=== PATIENT | male | born 1960 | race Caucasian/White ===

== ENCOUNTER → 2017-02-20 13:34 | Outpatient (CLI) | payer BC ==
[2016-06-17 04:53] VITALS: BMI 35.5
[~2017-02-20 13:34] MED LIST: AMBIEN10 MG PO; BAYER CHEWABLE81 MG PO; BENICAR HCT 40-1 TAB PO; COUMADIN10 MG PO; CYCLOBENZAPRINE10 MG PO; GLUCOPHAGE500 MG PO; HYDROCODONE-APA1 TAB PO; HYZAAR 100-12.51 TAB PO; NORCO 10/325 TA1 TA1 PO; PLAVIX75 MG PO; PROTONIX40 MG PO; ULTRAM50 MG PO
[2017-02-20 14:43] LABS: CKMB 2.2 U/L (0.0-3.6); CREATINE KINASE 136 UL (21-232)
[2017-02-20 14:44] LABS: TROPONIN-I < 0.017 ng/mL (0.000-0.060)
== END | disposition home or self-care (01) ==
LOC: D.LAB 13:34
PROVIDERS: Family Medicine
DX: R07.9 Chest pain, unspecified (principal)

== ENCOUNTER 2018-08-19 08:02 | Emergency (ER) | payer MEDICARE ==
[~2018-08-19] VITALS: Ht 177.8 cm; Wt 111.4 kg
[2018-08-19 08:15] VITALS: Ht 177.8 cm; Wt 111.4 kg
[2018-08-19 08:47] LABS: BASOPHILS 0.3 % (0-2); EOSINOPHILS 0.6 % (0-7); HEMATOCRIT 42.7 % (42.0-54.0); HEMOGLOBIN 15.1 g/dL (13.5-17.5); IMMATURE GRANULOCYTES 0.6 % (0-5); LYMPHOCYTES 26.6 % (15-50); MCH 31.3 pg (26.0-34.0); MCHC 35.4 g/dL (31.0-37.0); MCV 88.4 fL (80.0-100.0); MEAN PLATELET VOLUME 9.7 fL (7.4-10.4); MONOCYTES 13.5 % (2-11); NEUTROPHILS 58.4 % (40-80); RBC 4.83 10x6/uL (4.20-6.10); RDW 12.7 % (11.5-14.5); WBC 6.9 10x3/uL (4.8-10.8)
[2018-08-19 08:48] LABS: PLATELET COUNT 223 10x3/uL (130-400)
[2018-08-19 09:14] LABS: ALBUMIN 3.5 g/dL (3.4-5.0); ALKALINE PHOSPHATASE 57 U/L (46-116); ALT (SGPT) 31 U/L (10-68); BILIRUBIN - TOTAL 0.43 mg/dL (0.2-1.3); CALC OSMOLALITY 277 mosm/kg (275-300); CALCIUM 8.6 mg/dL (8.5-10.1); CARBON DIOXIDE 26.3 mmol/L (21.0-32.0); CHLORIDE - SERUM 100 mmol/L (98-107); POTASSIUM - SERUM 4.3 mmol/L (3.5-5.1); PROTEIN - SERUM 6.8 g/dL (6.4-8.2); SODIUM 135 mmol/L (136-145); UREA NITROGEN 19 mg/dL (7-18); eGFR NON AFRICAN AMERICAN 81 mL/min (90-120)
[2018-08-19 09:18] LABS: GLUCOSE 211 mg/dL (74-106); INR 2.28 (0.85-1.17); PROTIME 24.5 SECONDS (11.6-15.0)
[2018-08-19] MEDS ORDERED: NORCO 10-325 TA1 TAB PO (09:59)
[2018-08-19 10:39] VITALS: BP 109/75
== END 2018-08-19 10:40 | disposition home or self-care (01) ==
LOC: D.ER 08:02
PROVIDERS: Emergency Medicine
DX: S89.92XA Unspecified injury of left lower leg, initial encounter (principal); W20.8XXA Other cause of strike by thrown, projected or falling object, initial encounter; Y93.89 Activity, other specified; Y92.019 Unspecified place in single-family (private) house as the place of occurrence of the external cause; E11.9 Type 2 diabetes mellitus without complications; I10 Essential (primary) hypertension; I25.10 Atherosclerotic heart disease of native coronary artery without angina pectoris; K21.9 Gastro-esophageal reflux disease without esophagitis

== ENCOUNTER 2018-09-09 08:34 | Day surgery (SDC) | payer MEDICARE ==
[~2018-09-09] VITALS: Ht 177.8 cm; Wt 110.0 kg
--- NOTE | ~2018-09-09 | MORECARE ---
CASE MANAGEMENT DISCHARGE SUMMARY PATIENT: GIOVANNA VEGA JR UNIT: [id number] ADM DATE: 09/09/18 AGE: 58 : 58 SEX: M ROOM/BED: AUTHOR: LEROY GAN PHYSICIAN: REFERRING PHYSICIAN: RUEL MARQUEZ MD DATE OF SERVICE: 09/14/18 Discharge Plan Patient Name: GIOVANNA VEGA Facility: [facility]:[place] : 1960 Planned Disposition: Home with Home Health Anticipated Discharge Date: 09/10/18 Discharge Date: 09/10/2018 Expected LOS: 1 Initial Reviewer: [email or web address] Initial Review Date: 09/10/2018 Generated: 09/14/18 2:47 pm Comments DCP- Discharge Planning Updated by [email or web address]: Natalie Bright on 09/10/18 3:[address] Patient Name: GIOVANNA VEGA Admission Status: Elective Accout number: [id number] Admission Date: 09-09-2018 : 1960 Admission Diagnosis: Attending: RUEL MARQUEZ Current LOS: 1 Anticipated DC Date: 09-10-2018 Planned Disposition: Home with Home Health Primary Insurance: [employer] Discharge Planning Comments: CM MET WITH PATIENT AND ABOUT WHAT HH SERVICE THEY WANTED TO USE. HE CHOSE [facility]. REFERAL DOCS FAXED TO [facility]. PT ALSO HAS TO BE SET UP WITH W[facility]. CM IS WORKING WITH [facility] TO SET THAT UP. CM WILL LET RN KNOW WHEN EVERYTHING IS SET UP AND PATIENT IS READY FOR DISCHARGE. Well Driller Helper: Natalie Bright Appended by Natalie Bright on 09/10/2018 16:02 CDT: [facility] SET UP WOUND [facility]AC WITH [facility]. [facility]AC DELIVERED. [facility] TO SEE PATIENT TOMORROW. [facility]'S PHONE NUMBER IS [phone]. [facility] DELIVERED. PATIENT READY FOR DISCHARGE. Coverage Notice Reviewer: [id number] - Natalie Bright Notice Issued Date-Time: 09/10/2018 10:23 Notice Type: Patient Choice Letter Notice Delivered To: Patient Relationship to Patient: Self Test Engineer Nuclear Equipment Name: Delivery Method: HAND - Hand Delivered Kay Days: Prior Verbal Notification: Recipient Understood Notice: Yes Recipient Signature: Yes Med Rec Note Co-signed by Attending: Coverage Notice Comment: PT [facility]OSE [facility] Last DP export: 09/10/18 3:09 Patient Name: GIOVANNA VEGA Page [id number] at 1347 All edits/amendments must be made on the electronic document DICTATION DATE: 09/14/187 AUDIOVISUAL PRODUCTION SPECIALIST: LARY 09/14/187 RPT#: [id number] DC DATE:09/10/18 STATUS: DEP [facility] [address] [place] [address] END OF REPORT
[~2018-09-09 08:34] MED LIST changes: +NORCO 10-325 TA1 TAB PO
[2018-09-09 09:07] LABS: BASOPHILS 0.3 % (0-2); EOSINOPHILS 0.7 % (0-7); HEMATOCRIT 42.5 % (42.0-54.0); HEMOGLOBIN 14.7 g/dL (13.5-17.5); IMMATURE GRANULOCYTES 0.4 % (0-5); LYMPHOCYTES 23.8 % (15-50); MCH 31.1 pg (26.0-34.0); MCHC 34.6 g/dL (31.0-37.0); MONOCYTES 12.3 % (2-11); NEUTROPHILS 62.5 % (40-80); RBC 4.72 10x6/uL (4.20-6.10); RDW 12.7 % (11.5-14.5); WBC 6.8 10x3/uL (4.8-10.8)
[2018-09-09 09:09] LABS: PLATELET COUNT 289 10x3/uL (130-400)
[2018-09-09 09:21] LABS: CALC OSMOLALITY 282 mosm/kg (275-300); CALCIUM 8.7 mg/dL (8.5-10.1); CARBON DIOXIDE 25.1 mmol/L (21.0-32.0); CHLORIDE - SERUM 103 mmol/L (98-107); CREATININE - SERUM 0.7 mg/dL (0.6-1.3); GLUCOSE 197 mg/dL (74-106); POTASSIUM - SERUM 4.7 mmol/L (3.5-5.1); SODIUM 138 mmol/L (136-145); UREA NITROGEN 17 mg/dL (7-18); eGFR NON AFRICAN AMERICAN > 90 mL/min (90-120)
[2018-09-09] MEDS ORDERED: BAYER CHEWABLE81 MG PO (09:33)
[2018-09-09] MEDS ORDERED: PIOGLITAZONE15 MG PO (09:33)
[2018-09-09] MEDS ORDERED: CLEOCIN HCL300 MG PO (09:34)
[2018-09-09] MEDS ORDERED: NORVASC5 MG PO (09:35)
[2018-09-09] MEDS ORDERED: LIPITOR20 MG PO (09:35)
[2018-09-09 09:43] VITALS: BP 131/80; BMI 34.7
[2018-09-09 09:44] LABS: APTT 42.5 SECONDS (22.8-39.4); INR 2.18 (0.85-1.17); PROTIME 23.6 SECONDS (11.6-15.0)
[2018-09-09 17:10] VITALS: BP 119/68; BMI 34.7
[2018-09-09 20:00] VITALS: BP 127/65
[2018-09-10] VITALS: BP 140/64
[2018-09-10 04:00] VITALS: BP 131/75
[2018-09-10 07:59] VITALS: BP 122/68
[2018-09-10 09:37] VITALS: Ht 177.8 cm; Wt 110.0 kg
[2018-09-25] MEDS ORDERED: CELEXA20 MG PO (12:59)
== END 2018-09-10 17:38 | disposition home or self-care (01) ==
LOC: D.M3 08:34 → D.OPS 08:34 → D.PAN 10:00 → D.OPS 10:00 → D.M3 16:19 → D.OPS 09-10 17:38
PROVIDERS: Anesthesiology
DX: S80.12XA Contusion of left lower leg, initial encounter (principal); W20.8XXA Other cause of strike by thrown, projected or falling object, initial encounter; E11.52 Type 2 diabetes mellitus with diabetic peripheral angiopathy with gangrene; I96 Gangrene, not elsewhere classified; I10 Essential (primary) hypertension; E78.5 Hyperlipidemia, unspecified; I25.10 Atherosclerotic heart disease of native coronary artery without angina pectoris; Z95.5 Presence of coronary angioplasty implant and graft; Z79.84 Long term (current) use of oral hypoglycemic drugs; Z79.01 Long term (current) use of anticoagulants; Z79.891 Long term (current) use of opiate analgesic; Z79.82 Long term (current) use of aspirin; Z79.2 Long term (current) use of antibiotics; Z79.899 Other long term (current) drug therapy

== ENCOUNTER 2018-09-30 06:30 | Day surgery (SDC) | payer BC ==
[2018-09-25 13:46] LABS: HEMATOCRIT 41.4 % (42.0-54.0); HEMOGLOBIN 14.1 g/dL (13.5-17.5); MCH 31.2 pg (26.0-34.0); MCHC 34.1 g/dL (31.0-37.0); MCV 91.6 fL (80.0-100.0); MEAN PLATELET VOLUME 9.6 fL (7.4-10.4); RBC 4.52 10x6/uL (4.20-6.10); RDW 12.7 % (11.5-14.5); WBC 5.7 10x3/uL (4.8-10.8)
[2018-09-25 13:54] LABS: CALC OSMOLALITY 286 mosm/kg (275-300); CALCIUM 8.4 mg/dL (8.5-10.1); CARBON DIOXIDE 27.7 mmol/L (21.0-32.0); CHLORIDE - SERUM 105 mmol/L (98-107); GLUCOSE 148 mg/dL (74-106); POTASSIUM - SERUM 4.3 mmol/L (3.5-5.1); SODIUM 141 mmol/L (136-145); UREA NITROGEN 20 mg/dL (7-18); eGFR NON AFRICAN AMERICAN 81 mL/min (90-120)
[2018-09-25 13:56] LABS: APTT 37.9 SECONDS (22.8-39.4); INR 1.79 (0.85-1.17); PROTIME 20.3 SECONDS (11.6-15.0)
[~2018-09-30] VITALS: Ht 177.8 cm; Wt 109.8 kg
[~2018-09-30 06:30] MED LIST changes: +CELEXA20 MG PO; +CLEOCIN HCL300 MG PO; +LIPITOR20 MG PO; +NORVASC5 MG PO; +PIOGLITAZONE15 MG PO
[2018-09-30 07:13] VITALS: BP 136/82; Ht 177.8 cm; Wt 109.8 kg
== END 2018-09-30 14:15 | disposition home or self-care (01) ==
LOC: D.OPS 06:30 → D.PAN 08:45 → D.OPS 08:45
PROVIDERS: Anesthesiology
DX: S81.802A Unspecified open wound, left lower leg, initial encounter (principal); Z01.812 Encounter for preprocedural laboratory examination

== ENCOUNTER 2019-01-04 21:38 | Emergency (ER) | payer BC ==
[~2019-01-04] VITALS: Ht 177.8 cm; Wt 116.4 kg
[2019-01-04 21:44] VITALS: Ht 177.8 cm; Wt 116.4 kg
[2019-01-04] MEDS ORDERED: VALIUM10 MG PO (21:48)
[2019-01-04] MEDS ORDERED: NEURONTIN 400400 MG PO (21:49)
[2019-01-04 22:40] LABS: BASOPHILS 0.3 % (0-2); EOSINOPHILS 0.7 % (0-7); HEMATOCRIT 41.1 % (42.0-54.0); HEMOGLOBIN 14.1 g/dL (13.5-17.5); IMMATURE GRANULOCYTES 0.4 % (0-5); LYMPHOCYTES 31.6 % (15-50); MCH 29.9 pg (26.0-34.0); MCHC 34.3 g/dL (31.0-37.0); MCV 87.3 fL (80.0-100.0); MEAN PLATELET VOLUME 9.8 fL (7.4-10.4); PLATELET COUNT 221 10x3/uL (130-400); RBC 4.71 10x6/uL (4.20-6.10); WBC 6.9 10x3/uL (4.8-10.8)
[2019-01-04 22:50] LABS: INR 2.67 (0.85-1.17); PROTIME 27.7 SECONDS (11.6-15.0)
[2019-01-04 22:51] LABS: D-DIMER-QUANTITATIVE 0.29 ug/mLFEU (0.20-0.54)
[2019-01-04 22:57] LABS: ALBUMIN 3.2 g/dL (3.4-5.0); ALKALINE PHOSPHATASE 76 U/L (46-116); ALT (SGPT) 33 U/L (10-68); BILIRUBIN - TOTAL 0.24 mg/dL (0.2-1.3); CALC OSMOLALITY 282 mosm/kg (275-300); CALCIUM 8.1 mg/dL (8.5-10.1); CARBON DIOXIDE 27.5 mmol/L (21.0-32.0); CHLORIDE - SERUM 101 mmol/L (98-107); CREATININE - SERUM 0.8 mg/dL (0.6-1.3); POTASSIUM - SERUM 3.7 mmol/L (3.5-5.1); PROTEIN - SERUM 6.6 g/dL (6.4-8.2); SODIUM 138 mmol/L (136-145); UREA NITROGEN 16 mg/dL (7-18); eGFR NON AFRICAN AMERICAN > 90 mL/min (90-120)
[2019-01-04 23:00] LABS: GLUCOSE 208 mg/dL (74-106)
[2019-01-04 23:52] VITALS: BP 140/70
== END 2019-01-04 23:52 | disposition home or self-care (01) ==
LOC: D.ER 21:38
PROVIDERS: Family Medicine
DX: I87.8 Other specified disorders of veins (principal); Z86.718 Personal history of other venous thrombosis and embolism; E11.9 Type 2 diabetes mellitus without complications; I73.9 Peripheral vascular disease, unspecified; I10 Essential (primary) hypertension